=== PATIENT | female | born 1950 | race Caucasian/White ===

== ENCOUNTER 2020-11-14 09:47 | Emergency (ER) | payer MEDICARE, BC ==
--- NOTE | 2020-11-14 10:16 | EDM.PDOC ---
ED HPI GENERAL MEDICAL PROBLEM - General Chief Complaint: General Stated Complaint: L GREAT TOE PAIN Time Seen by Provider: 11/14/20 10:05 Source of Information: Reports: Patient History Limitations: Reports: No Limitations - History of Present Illness INITIAL COMMENTS - FREE TEXT/NARRATIVE: Corrine is a 70 year old female who presents to ER with concerns of a possible infection to left great toe. Had her toenail removed 2 weeks ago and it was doing good until started to note more redness yesterday and last night there was drainage on the bandage. Has more discomfort that she had been. Was initially soaking it in hydrogen peroxide but lately was "just waiting for it to heal". No fevers. Onset: Gradual Duration: Day(s):, Getting Worse Location: Reports: Lower Extremity, Left Quality: Reports: Ache Severity: Mild Associated Symptoms: Reports: No Other Symptoms - Related Data Allergies Allergy/AdvReac Type Severity Reaction Status Date / Time budesonide Allergy Other Verified 11/14/20 09:52 [From Rhinocort Allergy] mold Allergy Other Verified 11/14/20 09:52 Penicillins Allergy Hives Verified 11/14/20 09:52 Tetracyclines Allergy Hives Verified 11/14/20 09:52 Home Meds: Home Meds Levothyroxine [Synthroid] 50 mcg PO ACBREAKFAST 11/14/20 [History] Omeprazole Magnesium [Prilosec Otc] 20 mg PO DAILY 11/14/20 [History] Past Medical History Gastrointestinal History: Reports: GERD Endocrine/Metabolic History: Reports: Hypothyroidism Social & Family History - Family History Family Medical History: No Pertinent Family History - Tobacco Use Tobacco Use Status *Q: Never Tobacco User Second Hand Smoke Exposure: No - Caffeine Use Caffeine Use: Reports: None - Recreational Drug Use Recreational Drug Use: No ED ROS GENERAL - Review of Systems Review Of Systems: See Below Constitutional: Denies: Fever, Chills, Malaise, Weakness HEENT: Reports: No Symptoms Respiratory: Reports: No Symptoms Cardiovascular: Reports: No Symptoms Endocrine: Reports: No Symptoms GI/Abdominal: Reports: No Symptoms Skin: Reports: Erythema, Wound ED EXAM, GENERAL - Physical Exam Exam: See Below Exam Limited By: No Limitations General Appearance: Alert, WD/WN, No Apparent Distress Extremities: Increased Warmth Neurological: Alert, Oriented Skin Exam: Other (left great toe has erythema to the DIP joint. Warm to the touch. No obvious drainage at this time. Tender. Good range of motion) Course - Vital Signs Last Recorded V/S: Last Vital Signs Temp 97.3 F 11/14/20 09:53 Pulse 68 11/14/20 09:53 Resp 16 11/14/20 09:53 BP 173/81 H 11/14/20 09:53 Pulse Ox 96 11/14/20 09:53 Departure - Departure Time of Disposition: 10:15 Disposition: Home, Self-Care 01 Condition: Good Clinical Impression: Wound infection - Discharge Information *PRESCRIPTION DRUG MONITORING PROGRAM REVIEWED*: No *COPY OF PRESCRIPTION DRUG MONITORING REPORT IN PATIENT JOHN: No Instructions: Wound Infection, [id number] Forms: ED Department Discharge Additional Instructions: 1. Soak toe 2-3 times per day in soap and water 2. Start Cephalexin 500 mg three times a day for 7 days 3. cover toe with wearing shoes/socks 4. Follow up if do not see improvement or symptoms worsen Sepsis Event Note (ED) - Evaluation Sepsis Screening Result: No Definite Risk - Focused Exam Vital Signs: Vital Signs Temp Pulse Resp BP Pulse Ox 11/14/20 09:53 97.3 F 68 16 173/81 H 96
== END 2020-11-14 10:37 | disposition home or self-care (01) ==
LOC: CC.ED 09:47
DX: T81.40XA Infection following a procedure, unspecified, initial encounter (principal); K21.9 Gastro-esophageal reflux disease without esophagitis; E03.9 Hypothyroidism, unspecified; Z88.0 Allergy status to penicillin; Z91.048 Other nonmedicinal substance allergy status; Z88.1 Allergy status to other antibiotic agents; Z88.8 Allergy status to other drugs, medicaments and biological substances; Z79.899 Other long term (current) drug therapy
CPT/HCPCS: 99282; 99283